=== PATIENT | male | born 1975 | race Caucasian/White ===

== ENCOUNTER 2017-04-23 21:36 | Emergency (ER) | payer MEDICAID | END 2017-04-24 00:04 | disposition home or self-care (01) | LOC: D.ER 21:36 | DX: T78.40XA Allergy, unspecified, initial encounter (principal); X58.XXXA Exposure to other specified factors, initial encounter ==

== ENCOUNTER 2019-05-27 03:50 | Emergency (ER) | payer SELFPAY ==
[~2019-05-27] VITALS: Ht 180.3 cm; Wt 104.5 kg
[2019-05-27] MEDS ORDERED: ALBUTEROL SULF8.5 GM INH (03:54)
[2019-05-27 03:55] VITALS: Ht 180.3 cm; Wt 104.5 kg
[2019-05-27] MEDS ORDERED: COZAAR100 MG PO (03:55)
[2019-05-27] MEDS ORDERED: FLOMAX0.4 MG PO (03:57)
[2019-05-27] MEDS ORDERED: PROZAC10 MG (03:57)
[2019-05-27] MEDS ORDERED: AUGMENTIN 875-11 TAB PO (04:19)
[2019-05-27] MEDS ORDERED: HYDROCODON-ACE1 EAC2 PO (04:20)
[2019-05-27 05:41] VITALS: BP 128/89
== END 2019-05-27 05:41 | disposition home or self-care (01) ==
LOC: D.ER 03:50
DX: R06.00 Dyspnea, unspecified (principal); J40 Bronchitis, not specified as acute or chronic; J45.909 Unspecified asthma, uncomplicated; I10 Essential (primary) hypertension

== ENCOUNTER 2020-09-07 20:11 | Emergency (ER) | payer SELFPAY ==
[~2020-09-07] VITALS: Ht 180.3 cm; Wt 100.0 kg
[~2020-09-07 20:11] MED LIST: ALBUTEROL SULF8.5 GM INH; AUGMENTIN 875-11 TAB PO; COZAAR100 MG PO; FLOMAX0.4 MG PO; HYDROCODON-ACE1 EAC2 PO; PROZAC10 MG
[2020-09-07 20:25] VITALS: Ht 180.3 cm; Wt 100.0 kg
[2020-09-07] MEDS ORDERED: LEXAPRO20 MG PO (20:28)
[2020-09-07] MEDS ORDERED: CLEOCIN HCL300 MG PO (21:09)
[2020-09-07 21:24] VITALS: BP 133/90
== END 2020-09-07 21:22 | disposition home or self-care (01) ==
LOC: D.ER 20:11
DX: L03.012 Cellulitis of left finger (principal)